=== PATIENT | female | born 1955 | race Caucasian/White ===

== ENCOUNTER 2017-01-08 18:28 | Emergency (ER) | payer MEDICAID ==
[2017-01-08 18:57] VITALS: TEMP 98.6
[2017-01-08] MEDS ORDERED: TDAP Vaccine 0.5 mL Syr IM ONE (19:39)
--- NOTE | 2017-01-08 19:42 | ED PDOC ---
Arrival/HPI - General Chief Complaint: Abnormal Skin Integrity Time Seen by Provider: 01/08/17 19:03 Historian: Patient - History of Present Illness Narrative History of Present Illness (Text): 01/08/17 21:29 Patient reports puncture wound injury to the plantar aspect of the L foot when she was walking inside of her home wearing her slippers. States that the nail went through the slippers and punctured her L foot. Otherwise: (-) other injury , (-) numbness. PMD Herring Tetanus not UTD Past Medical History - Provider Review Nursing Documentation Reviewed: Yes - Infectious Disease Hx of Infectious Diseases: None - Reproductive Menopause: Yes - Psychiatric Hx Substance Use: No - Anesthesia Hx Anesthesia: No Family/Social History - Physician Review Nursing Documentation Reviewed: Yes Family/Social History: No Known Family HX Smoking Status: Unknown If Ever Smoked Hx Alcohol Use: No Hx Substance Use: No Allergies/Home Meds Allergies/Adverse Reactions: Allergies peroxide Allergy (Uncoded 01/08/17 18:58) RASH Review of Systems - Review of Systems Constitutional: Normal. absent: Fatigue, Weight Change, Fevers Musculoskeletal: Normal. absent: Arthralgias, Back Pain Skin: Normal. absent: Rash, Pruritis, Skin Lesions Physical Exam - Physical Exam Narrative Physical Exam (Text): 01/08/17 21:28 GENERAL APPEARANCE: Patient is awake, alert, oriented x 3, in no acute distress. SKIN: Warm, dry, (-) skin leasions or rashes. LOWER EXTREMITY: (+) Point tenderness to the mid plantar aspect of the L foot, (-) swelling, (-) ecchymosis. (-) crepitus, (-) deformity. Tendon function intact. (-) distal neurovascular deficit. (+) 2 point discrimination. Remainder of foot, digits and ankle: (-) injury except. Vital Signs Temp Pulse Resp BP Pulse Ox 01/08/17 20:20 79 18 135/80 97 01/08/17 18:53 98.6 F 88 16 137/76 95 Medical Decision Making ED Course and Treatment: 01/08/17 21:27 61 yo F sustained a puncture wound to the L foot. Given tdap IM, wound cleaned and dressed. Rx for Cipro sent to patient's pharmacy. Based on history and exam, plan will be for outpatient follow up. Patient states she fully agrees with and understands discharge instructions. States that she agrees with the plan and disposition. Verbalized and repeated discharge instructions and plan. I have given the patient opportunity to ask any additional questions. Follow up with primary care physician in 1-2 days without fail. Advised to take medication as prescribed. Return to the emergency room at any time for any new or worsening symptoms. - Medication Orders Current Medication Orders: Discontinued Medications Tetanus/Reduced Diphtheria/Acell Pertussis (Boostrix Vaccine Inj) 0.5 ml IM .ONCE ONE Stop: 01/08/17 19:40 Last Admin: 01/08/17 20:18 Dose: 0.5 ML [facility] Immunization Data Document 01/08/17 20:18 SF (Rec: 01/08/17 20:19 SF [id number]) Immunization Data Vaccine Lot Number [id number] Vaccine Expiration Date 12/18/18 Site Given Right Deltoid Route Intramuscular - PA / [employer]ULATOR / Resident Statement MD/DO has reviewed & agrees with the documentation as recorded. Disposition/Present on Arrival - Present on Arrival Any Indicators Present on Arrival: No History of DVT/PE: No History of Uncontrolled Diabetes: No Urinary Catheter: No History of Decub. Ulcer: No History Surgical Site Infection Following: None - Disposition Have Diagnosis and Disposition been Completed?: Yes Diagnosis: Puncture wound Disposition: HOME/ ROUTINE Disposition Time: 19:40 Patient Plan: Discharge Condition: GOOD Discharge Instructions (ExitCare): Puncture Wound (ED) Print Language: HAITIAN Additional Instructions: Thank you for letting us take care of you today. You were treated for puncture wound to foot. The emergency medical care you received today was directed at your acute symptoms. If you were prescribed any medication, please fill it and take as directed. It may take several days for your symptoms to resolve. Return to the Emergency Department if your symptoms worsen, do not improve, or if you have any other problems. Please contact your doctor in 2 days for re-evaluation and follow up. Bring any paperwork you were given at discharge with you along with any medications you are taking to your follow up visit. Our treatment cannot replace ongoing medical care by a primary care provider (PCP) outside of the emergency department. Thank you for allowing the [facility] team to be part of your care today. Prescriptions: Ciprofloxacin [Cipro] 500 mg PO BID #14 tab Referrals: Rudy Herring Jr., MD [Primary Care Provider] - Follow up with primary Forms: WORK NOTE
[2017-01-08 20:21] VITALS: BP 135/80; PULSE 79; RESP 18; O2SAT 97
== END 2017-01-08 20:23 | disposition home or self-care (01) ==
LOC: ED 18:28
DX: S91.332A Puncture wound without foreign body, left foot, initial encounter (principal); W45.0XXA Nail entering through skin, initial encounter; Y92.009 Unspecified place in unspecified non-institutional (private) residence as the place of occurrence of the external cause; Z23 Encounter for immunization